=== PATIENT | male | born 1990 | race African-American/Black ===

== ENCOUNTER 2019-04-04 08:53 | Day surgery (SDC) | payer BC, OTHER ==
[2019-04-03 14:29] VITALS: BMI 25.8
--- NOTE | 2019-04-04 08:10 | HP ---
[facility] - Chief Complaint Chief Complaint: left ankle fx - Past Medical History Allergies/Adverse Reactions: Allergies Allergy/AdvReac Type Severity Reaction Status Date / Time avocado Allergy Severe Vomiting Verified 04/03/19 14:20 banana Allergy Severe Vomiting Verified 04/03/19 14:19 melon Allergy Severe Vomiting Verified 04/03/19 14:20 shellfish derived Allergy Severe Swelling Verified 04/03/19 14:20 No Known Drug Allergies Allergy Verified 04/03/19 14:19 - Current Medications Current Medications: Home Medications Medication Instructions Recorded Ibuprofen 800 mg PO ASDIR 04/03/19 Satellite Physical Exam - Physical Examination General Appearance: Well Nourished, Well Developed, Alert & Oriented x3 ENT: Clear Lung: Normal air movement Extremities: Other (left ankle- splint intact, nvi) Neurological: Intact, Alert, Oriented [facility]ellite Impression/Plan - Impression/Plan Impression: left ankle fx Operative Procedure: left ankle orif Date to be Performed: 04/04/19
[2019-04-04] MEDS ORDERED: MIDAZOLAM HCL 2 MG/2 ML SINGLE DOSE VIAL ONE (10:24)
[2019-04-04] MEDS ORDERED: BUPIVACAINE HCL/PF 0.5% (5 MG/ML) 30 ML VIAL IJ ONE (10:24)
[2019-04-04] MEDS ORDERED: BUPIVACAINE LIPOSOME/PF (EXPAREL) 266 MG/20 ML VIAL ONE (10:24)
[2019-04-04] MEDS ORDERED: SUCCINYLCHOLINE CHLORIDE 200 MG/10 ML SYRINGE ONE (10:48)
[2019-04-04] MEDS ORDERED: PROPOFOL 20 ML ONE ×2 (10:48)
[2019-04-04] MEDS ORDERED: KETOROLAC TROMETHAMINE 30 MG/1 ML VIAL ONE (11:05)
[2019-04-04] MEDS ORDERED: ONDANSETRON 4 MG/2 ML VIAL ONE (11:05)
[2019-04-04] MEDS ORDERED: DEXAMETHASONE SOD PHOSPHATE 4 MG/1 ML VIAL ONE (11:05)
[2019-04-04] MEDS ORDERED: LIDOCAINE HCL 2% JELLY (5 ML/TUBE) ONE (11:05)
[2019-04-04] MEDS ORDERED: LIDOCAINE HCL/PF 2% SDV 5ML VIAL ONE (11:05)
[2019-04-04] MEDS ORDERED: ceFAZolin SODIUM 1 GM VIAL ONE (11:05)
[2019-04-04] MEDS ORDERED: oxyCODONE HCL 5 MG TABLET PO PRN (11:30)
[2019-04-04] MEDS ORDERED: ONDANSETRON 4 MG/2 ML VIAL IVPUSH PRN (11:30)
[2019-04-04] MEDS ORDERED: LACTATED RINGERS SOLUTION 1,000 ML IV SCH (11:30)
--- NOTE | 2019-04-04 12:14 | OP ---
Operative Note - Note: Operative Date: 04/04/19 (fatuma) Pre-Operative Diagnosis: left fibula fx Operation: left ankle orif, syndesmosis repair Post-Operative Diagnosis: Same as Pre-op Surgeon: Carlos Pop Metrology Manager: Gaurav Barber Anesthesiologist/[employer] PRODUCTION TECHNICIAN: Ke Wagner Anesthesia: General, Local Estimated Blood Loss (mls): 5 (tourniquet)
[2019-04-04 13:25] VITALS: TEMP 98.4
--- NOTE | 2019-04-04 14:44 | OP ---
DATE OF OPERATION: 04/04/2019 PREOPERATIVE DIAGNOSIS: A comminuted complex distal fibular fracture with syndesmosis rupture. POSTOPERATIVE DIAGNOSIS: A comminuted complex distal fibular fracture with syndesmosis rupture. PROCEDURE: Open reduction internal fixation of the complex distal fibular fracture syndesmosis repair. SURGICAL ATTENDING: Angela Pop MD UTILIZATION REVIEWER: RIGOBERTO Robison ANESTHESIA: Regional and general. CLOSURE: A [place] lateral distal fibular plate with appropriate screws and 2 Arthrex Syndesmosis TightRopes, 0 Vicryl fascia, 2-0 subcutaneous, 3-0 Monocryl subicuticular, skin glue for skin. ESTIMATED BLOOD LOSS: Negligible. TOURNIQUET TIME: Approximately an hour. COMPLICATIONS: None. CONDITION: Stable condition. INDICATIONS FOR OPERATIVE PROCEDURE: Patient was status post fall and was seen in my office 2 days ago and diagnosed with left markedly comminuted distal fibular fracture, which was shortened and displaced with syndesmosis rupture as well. Risks, benefits and alternatives were discussed with the patient in great detail and patient elected to go forward with the procedure. DESCRIPTION OF OPERATIVE PROCEDURE: Patient was taken to the operating room on April 04, 2019. Regional and general anesthesia was administered by the anesthesiologist. IV Kefzol was administered prophylactically prior to the case. A well-padded pneumatic tourniquet was placed on the left proximal thigh. Left lower extremity was prepped and draped in the usual sterile fashion. A long 12 to 15 cm longitudinal incision, the distal fibula was incised. Hemostasis was achieved using Bovie cautery. This was done after the leg was exsanguinated with an Esmarch bandage. The tourniquet was inflated to 275 mmHg. Sharp dissection was carried down to the level of the fracture. The fracture had multiple planes of the fracture. First it was a long nondisplaced split of the distal fibula. This was clamped anterior to posterior and a lag screw was placed from anterior to posterior to stop that fracture from propagating further and holding in anatomic reduction. Next, the more proximal aspect of the fracture was exposed, cleaned with irrigation and curettes. It was found to be split anterior to posterior and medial to laterally in multiple planes with multiple butterfly fragments. It was also found to be overriding making the fibula short. Serrated reduction clamps were placed both anterior and posteriorly to pull the fracture apart and to wells in the various fragments and butterfly fragments to obtain an anatomical reduction. Due to the marked amount of comminution, it was unable to lag any of these components of the fracture. Instead a long 10-hole distal fibular plate was clamped to the lateral aspect of the distal fibula both proximally and distally to the fracture. Fluoroscopy revealed anatomical reduction and good tenriism of length of the fibula. Multiple proximal and distal locking screws were placed reducing the fracture. Initially one proximal and one distal non-locking screw was used to cinch the plate to the bone. Then multiple other locking screws were applied and then the non-locking screw was removed and replaced with the locking screws. The syndesmosis was stressed and found to open with external rotation. Two holes in the plate that were just proximal to the ankle joint were used to place Arthrex Syndesmosis TightRopes. Titanium TightRopes were chosen as we were using a titanium plate. We coiled the ankle in neutral and internal rotation. The guidewire was drilled all 4 cortices. Once ensured that it was in the right place, it was over drilled with the cannulated drill and then the TightRope was deployed. This was done twice and tightened again with the ankle in neutral and internal rotation achieving excellent reduction. External rotation revealed that the syndesmosis was reduced sufficiently. Due to the comminution around fracture, which was keyed in, an adjuvant No. 1 Vicryl was placed circumferentially around the fibula at the level of the comminution to just hold all those fragments in place as they heal as well. Excellent reduction was confirmed in the AP, mortise and lateral views based on fluoroscopy. The incision was antibiotic irrigated. Fascia was tacked loosely together with 0 Vicryl, 2-0 subcutaneous and 3-0 Monocryl subcuticular. Gerard were used for skin. Xeroform and a U splint was applied. Patient awakened from anesthesia and transferred to the recovery room in stable condition no complications. Estimated blood loss negligible and the tourniquet was deflated at the end of the case. Total tourniquet was approximately an hour. Gaurav Barber, the PA from our practice, was 100% instrumental in assisting in this case as due to the comminution an extra roofer assistant was 100% necessary in order to ensure that the fracture did not further displace and that an anatomical reduction was obtained. This open reduction was deemed a highly complex and difficult procedure due to the marked comminution and multiple fracture patterns that was needed to be anatomical reduced in order to obtain an excellent reduction. ANGELA POP M.D. [id number]
[2019-04-04 15:38] VITALS: BP 138/78; PULSE 64
== END 2019-04-04 14:30 | disposition home or self-care (01) ==
LOC: FASU 08:53
PROVIDERS: ATTEND Orthopaedic Surgery
PROC: 0SSG0ZZ Reposition Left Ankle Joint, Open Approach (ICD-10-PCS; 2019-04-04)
PROC: 0QSK04Z Reposition Left Fibula with Internal Fixation Device, Open Approach (ICD-10-PCS; principal; 2019-04-04 11:12)
DX: S82.452A Displaced comminuted fracture of shaft of left fibula, initial encounter for closed fracture (principal); W19.XXXA Unspecified fall, initial encounter; Y93.9 Activity, unspecified; Y92.9 Unspecified place or not applicable; S93.432A Sprain of tibiofibular ligament of left ankle, initial encounter
CPT/HCPCS: 27784; 27829; C1713; 73610-TC-LT-FY; 76000-TC-FY; 94760